=== PATIENT | female | born 1960 | race Hispanic/Latino ===

== ENCOUNTER 2018-11-01 11:40 | Emergency (ER) | payer MEDICAID, OTHER ==
[2018-11-01 13:54] LABS: BASO # 0.1 K/uL (0.0-0.2); BASO % 0.8 % (0.0-2.0); EOS # 0.1 K/uL (0.0-0.7); HEMOGLOBIN 11.8 g/dL (12.0-16.0); LYMPH # 1.5 K/uL (1.0-4.3); LYMPH % 17.8 % (20.0-40.0); MEAN CELL VOLUME 71.8 fl (81.0-99.0); MEAN CORPUSCULAR HEMOGLOBIN 22.9 pg (27.0-31.0); MEAN CORPUSCULAR HGB CONC 31.9 g/dL (33.0-37.0); MEAN PLATELET VOLUME 9.2 fl (7.2-11.7); MONO # 0.4 K/uL (0.0-0.8); MONO % 5.2 % (0.0-10.0); NEUT # 6.1 K/uL (1.8-7.0); NEUT % 75.2 % (50.0-75.0); RBC 5.16 Mil/uL (3.80-5.20); RED CELL DISTRIBUTION WIDTH 18.1 % (11.5-14.5); WHITE BLOOD COUNT 8.2 K/uL (4.8-10.8)
[2018-11-01 13:59] LABS: ALB/GLOB RATIO 0.9 (1.0-2.1); ALBUMIN 3.7 g/dL (3.5-5.0); ALT/SGPT 14 U/L (9-52); AST/SGOT 24 U/L (14-36); BLOOD UREA NITROGEN 9 mg/dl (7-17); CALCIUM 9.2 mg/dL (8.4-10.2); GFR NON-AFRICAN AMERICAN > 60
--- NOTE | 2018-11-01 14:10 | ED PDOC ---
HPI: Wound Care - HPI Time Seen by Provider: 11/01/18 12:05 Chief Complaint (Nursing): Wound Check Chief Complaint (Provider): Wound Check History Per: Patient Exam Limitations: no limitations Additional Complaint(s): Brice Mejia is a 58 year old female with a past medical history of diab etes, hypothyroidism, hernia and multiple abdominal surgeries, who presents to the emergency department with heavy drainage from fistula and expulsion of possible mesh. She states she developed a fistula from her bowels to skin in June of this year. Patient states she has seen her PMD for this and is treating it at home with creams and dressing changes with some improvement at the time. She further reports that there was a tiny portion of mesh that was visible at the opening. Since today, the patient noticed heavy drainage from the area that has stool mixed with possible pus. Patient noticed to have mesh in the dressing when she removed it. She states the drainage of stool form the fistula site is frequent. Patient has been informed in the past that she is not a surgical candidate anymore. She denies fever, chills, sweats, dysuria, abdominal pain. Her last bowel movement was yesterday. PMD: Everton Koroma Past Medical History Reviewed: Historical Data, Nursing Documentation, Vital Signs Vital Signs: Last Vital Signs Temp 97.8 F 11/01/18 11:46 Pulse 117 H 11/01/18 11:46 Resp 15 11/01/18 11:46 BP 113/63 11/01/18 11:46 Pulse Ox 100 11/01/18 11:46 - Medical History PMH: Anemia, Diabetes, HTN, Hypothyroidism Denies: Chronic Kidney Disease - Surgical History Other surgeries: multiple abdominal surgeries - Family History Family History: States: Unknown Family Hx - Immunization History Hx Tetanus Toxoid Vaccination: Yes Hx Influenza Vaccination: Yes Hx Pneumococcal Vaccination: No - Home Medications Home Medications: Ambulatory Orders Medication Instructions Recorded Enalapril Maleate 5 mg PO HS 09/07/14 Levothyroxine Sodium [Synthroid] 200 mcg PO DAILY 09/07/14 MetFORMIN [glucoPHAGE] 1,000 mg PO BID 09/07/14 Naproxen [Naprosyn] 1 tab PO BID PRN #20 tab 10/14/15 traMADol [Ultram] 50 mg PO Q8 #20 tab 10/14/15 Famotidine [Pepcid] 1 tab PO BID #10 tab 10/15/16 Ondansetron [Zofran Odt] 1 odt PO BID PRN #4 odt 10/15/16 - Allergies Allergies/Adverse Reactions: Allergies Allergy/AdvReac Type Severity Reaction Status Date / Time No Known Allergies Allergy Verified 10/15/16 16:36 Review of Systems ROS Statement: Except As Marked, All Systems Reviewed And Found Negative Constitutional: Negative for: Fever, Chills, Sweats Gastrointestinal: Positive for: Other (abdominal drainage from fistula ). Negative for: Abdominal Pain, Diarrhea Physical Exam - Reviewed Nursing Documentation Reviewed: Yes Vital Signs Reviewed: Yes - Physical Exam Appears: Positive for: Non-toxic Head Exam: Positive for: ATRAUMATIC Skin: Positive for: Normal Color Cardiovascular/Chest: Positive for: Regular Rate, Rhythm. Negative for: Murmur Respiratory: Positive for: Normal Breath Sounds. Negative for: Respiratory Distress Gastrointestinal/Abdominal: Positive for: Mass (on palpation there is a firm 4.5-5 cm mass on the right lateral to the opening of the fistula; (-) fluctuance ), Other (large pannus). Negative for: Normal Exam (appox. 3.5 cm opening in the right lower quadrant with fecal content and purulent drainage; erythema around the opening), Tenderness, Distended, Guarding Neurologic/Psych: Positive for: Alert, Oriented - Laboratory Results Result Diagrams: 11/01/18 13:25 11/01/18 13:25 - ECG O2 Sat by Pulse Oximetry: 100 (RA) Pulse Ox Interpretation: Normal Medical Decision Making Medical Decision Making: Time: 12:48 Plan: --CMP --CBC with differential --PTT --PT --Urinalysis --Surgical consultation 1840 Abd/pelvis CT FINDINGS: LOWER THORAX: The visualized lungs are clear. LIVER: Normal in size. There are scattered punctate calcifications consistent with prior granular GALLBLADDER AND BILE DUCTS: The gallbladder is distended without wall thickening or pericholecystic fluid. There are multiple gallstones and a large peripherally calcified stone in the region of the neck. PANCREAS: Diffuse fatty trophy of the pancreas. No gross lesion or ductal dilatation. SPLEEN: Normal in size. There are multiple punctate calcifications consistent with prior granulomatous disease. ADRENALS: No discrete nodule. KIDNEYS AND URETERS: Normal in size. No hydronephrosis. There is a 12 mm nonobstructing stone in the upper pole of the left kidney. There is a subcentimeter high attenuation lesion in the lower pole likely a hemorrhagic cyst slightly increased in size since the prior examination. VASCULATURE: No aortic aneurysm. Atherosclerotic aortoiliac calcifications are present. BOWEL: There is redemonstration of a large ventral abdominal hernia containing the gastric antrum, pylorus, duodenum, majority of the small bowel loops and colon. The small bowel loops are normal in caliber. There is a linear tract containing oral contrast leading from the small bowel loops in the right lower quadrant to the skin surface. There is abnormal circumferential soft tissue surrounding this tract in the right ventral abdominal wall. There is a big defect in the skin surface and irregularity which likely represents the enterocutaneous fistula. There are multiple surgical clips in the right lower abdomen related to prior bowel surgery. There is irregular ulcerated appearance of the skin inferior lateral to the ileostomy. There is no evidence of bowel dilatation or obstruction. APPENDIX: Normal appendix. PERITONEUM: No free fluid. No free air. LYMPH NODES: No enlarged lymph nodes. BLADDER: Well distended and normal in appearance. REPRODUCTIVE: The uterus is mildly enlarged and lobular which may be related to fibroid uterus or adenomyosis. BONES: No acute fracture. Within normal limits for the patient's age. OTHER FINDINGS: None. IMPRESSION: Findings are most compatible with enterocutaneous fistula with abnormal soft tissue surrounding the fistula tract in the right lateral lower abdominal wall. No evidence for bowel obstruction. Additional comments as described above. Large ventral abdominal wall hernia containing majority of the small and large bowel. Pt seen by surgical consult who manually removed most of mesh that was expelled from fistula. Pt to f/u with Dr. Valentine in office in 2 weeks. Scribe Attestation: Documented by Jesse Hudson, acting as a scribe for Meme Teresa-Agarwal PA-C. Provider Scribe Attestation: All medical record entries made by the Scribe were at my direction and personally dictated by me. I have reviewed the chart and agree that the record accurately reflects my personal performance of the history, physical exam, medical decision making, and the department course for this patient. I have also personally directed, reviewed, and agree with the discharge instructions and dis position. Disposition - Clinical Impression Clinical Impression: Enterocutaneous fistula - Patient ED Disposition Is Patient to be Admitted: No Counseled Patient/Family Regarding: Studies Performed, Diagnosis, Need For Followup - Disposition Referrals: Lyn Valentine MD [Staff Provider] - Disposition: Routine/Home Disposition Time: 21:25 Condition: STABLE Additional Instructions: F/u in two weeks with Dr. Lyn Valentine for f/u. Use Xeroform as directed by the surgeon. F/u with Dr. Everton Koroma for routine evaluation as needed. Return to ER if you develop fevers, chills or night sweats. Instructions: Enterocutaneous Fistula (DC) Forms: [employer] (Senegalese) Print Language: BOLIVIAN
[2018-11-01 14:18] LABS: INR 1.1
[2018-11-01 14:21] LABS: PARTIAL THROMBOPLASTIN TIME 31.2 Seconds (25.6-37.1)
[2018-11-01] MEDS ORDERED: Iohexol 240 (50 ml) PO ONE (15:28)
[2018-11-01] MEDS ORDERED: Iohexol 240 (50 ml) ONE (15:33)
--- NOTE | 2018-11-01 15:51 | CP.PCM.CON ---
History of Present Illness - History of Present Illness History of Present Illness: SURGERY CONSULT NOTE FOR DR. MONSON Reason for consult: Exposed abdominal hernia mesh exposure with EC fistula 58F presents to ED for exposed abdominal hernia mesh. She admits to a long history of multiple abdominal hernia repairs the last one being in 2010. She states she first noticed drainage from abdominal wall 4 years ago and that is went she was diagnosed with EC fistula. Patient states she notices mesh exposure 4 months ago in june. She has been following multiple physicians for this EC fistula. Patient came today because the amount of mesh exposed suddenly increased in short amount of time according to patient. She denies any abdominal pain, denies nausea, vomiting, fevers or chills. She has been having normal bow el function. PMH: DM, SBO, multiple hernia PSH: Multiple abdominal operations, SBR 2010 according to documentation Past Patient History - Infectious Disease Hx of Infectious Diseases: None - Tetanus Immunizations Tetanus Immunization: Unknown - Past Medical History & Family History Past Medical History?: Yes - Past Social History Smoking Status: Former Smoker - CARDIAC Hx Hypertension: Yes - PULMONARY Hx Respiratory Disorders: No - NEUROLOGICAL Hx Neurological Disorder: No - HEENT Hx HEENT Problems: No - RENAL Hx Chronic Kidney Disease: No - ENDOCRINE/METABOLIC Hx Hypothyroidism: Yes - HEMATOLOGICAL/ONCOLOGICAL Hx Anemia: Yes - INTEGUMENTARY Hx Dermatological Problems: Yes Other/Comment: ABDOMINAL FISTULA W/ MULTIPLE SURGERIES - MUSCULOSKELETAL/RHEUMATOLOGICAL Hx Musculoskeletal Disorders: No Hx Falls: No - GASTROINTESTINAL Hx Gastrointestinal Disorders: Yes Hx Bowel Surgery: No - GENITOURINARY/GYNECOLOGICAL Hx Genitourinary Disorders: No - PSYCHIATRIC Hx Psychophysiologic Disorder: No Hx Substance Use: No - SURGICAL HISTORY Hx Surgeries: Yes Hx Herniorrhaphy: Yes (3 yrs ago) Other/Comment: colon resection, ABDOMINAL FISTULA REPAIR - ANESTHESIA Hx Anesthesia: Yes Hx Anesthesia Reactions: No Meds Allergies/Adverse Reactions: Allergies Allergy/AdvReac Type Severity Reaction Status Date / Time No Known Allergies Allergy Verified 10/15/16 16:36 Physical Exam - Constitutional Appears: Non-toxic, No Acute Distress - Eye Exam Eye Exam: EOMI, PERRL - ENT Exam ENT Exam: Mucous Membranes Moist - Respiratory Exam Respiratory Exam: Clear to Auscultation Bilateral, NORMAL BREATHING PATTERN - Cardiovascular Exam Cardiovascular Exam: REGULAR RHYTHM, +S1, +S2 - GI/Abdominal Exam GI & Abdominal Exam: Soft. absent: Distended, Firm, Guarding, Rebound, Rigid, Tenderness Additional comments: EC fistula located at site where umbilicus would be. Opening approximately 2-3cm in diameter with succus and particulated bowel content drainage. inferior to opening is 5-6cm of granulation tissue. 90%of mesh is exposed, saturated with stool and hardened, no purulent material. - Neurological Exam Neurological exam: Alert, Oriented x3 - Psychiatric Exam Psychiatric exam: Anxious, Normal Affect, Normal Mood - Skin Skin Exam: Dry, Intact, Normal Color, Warm Results - Vital Signs Recent Vital Signs: Last Vital Signs Temp 97.8 F 11/01/18 11:46 Pulse 117 H 11/01/18 11:46 Resp 15 11/01/18 11:46 BP 113/63 11/01/18 11:46 Pulse Ox 100 11/01/18 14:21 - Labs Result Diagrams: 11/01/18 13:25 11/01/18 13:25 Labs: Laboratory Results - last 24 hr 11/01/18 11/01/18 11/01/18 13:25 13:25 13:25 WBC 8.2 RBC 5.16 Hgb 11.8 L Hct 37.1 MCV 71.8 L MCH 22.9 L MCHC 31.9 L RDW 18.1 H Plt Count 331 MPV 9.2 Neut % (Auto) 75.2 H Lymph % (Auto) 17.8 L [place] % (Auto) 5.2 Eos % (Auto) 1.0 Baso % (Auto) 0.8 Neut # (Auto) 6.1 Lymph # (Auto) 1.5 [place] # (Auto) 0.4 Eos # (Auto) 0.1 Baso # (Auto) 0.1 PT INR APTT Sodium 140 Potassium 4.0 Chloride 106 Carbon Dioxide 23 Anion Gap 15 BUN 9 Creatinine 0.6 L Est GFR ( Amer) > 60 Est GFR (Non-Af Amer) > 60 Random Glucose 152 H Calcium 9.2 Total Bilirubin 0.4 AST 24 ALT 14 Alkaline Phosphatase 80 Total Protein 7.8 Albumin 3.7 Globulin 4.1 H Albumin/Globulin Ratio 0.9 L Blood Type Cancelled Antibody Screen Cancelled BBK History Checked Cancelled 11/01/18 11/01/18 14:05 14:11 WBC RBC Hgb Hct MCV MCH MCHC RDW Plt Count MPV Neut % (Auto) Lymph % (Auto) [place] % (Auto) Eos % (Auto) Baso % (Auto) Neut # (Auto) Lymph # (Auto) [place] # (Auto) Eos # (Auto) Baso # (Auto) PT 13.0 INR 1.1 APTT 31.2 Sodium Potassium Chloride Carbon Dioxide Anion Gap BUN Creatinine Est GFR ( Amer) Est GFR (Non-Af Amer) Random Glucose Calcium Total Bilirubin AST ALT Alkaline Phosphatase Total Protein Albumin Globulin Albumin/Globulin Ratio Blood Type A POSITIVE Antibody Screen Negative BBK History Checked Patient has bt Assessment & Plan - Assessment and Plan (Free Text) Assessment: 58F with EC fistula and exposed abdominal hernia mesh Plan: - regular diet - Protruding piece of mesh sloughed off leaving smaller amount of mesh behind. bedside - ECF cleaned off particulated succus - Dressed with 4*4 gauze into fistula to absorb content and xeroform on granulation tissue - Patient needs CT Abdomen and pelvis with PO contrast to evaluate the fistula Discussed with Dr. Serge Viera, PGY3
--- NOTE | 2018-11-01 18:45 | CT ---
Date of service: 11/01/2018 PROCEDURE: CT Abdomen and Pelvis with contrast HISTORY: enterocutaneous fistula COMPARISON: 09/07/2014. TECHNIQUE: CT scan of the abdomen and pelvis was performed without administration of intravenous contrast. Oral contrast was administered. Coronal and sagittal reformatted images were obtained. Radiation dose: Total exam DLP = 1134.31 mGy-cm. This CT exam was performed using one or more of the following dose reduction techniques: Automated exposure control, adjustment of the mA and/or kV according to patient size, and/or use of iterative reconstruction technique. FINDINGS: LOWER THORAX: The visualized lungs are clear. LIVER: Normal in size. There are scattered punctate calcifications consistent with prior granular GALLBLADDER AND BILE DUCTS: The gallbladder is distended without wall thickening or pericholecystic fluid. There are multiple gallstones and a large peripherally calcified stone in the region of the neck. PANCREAS: Diffuse fatty trophy of the pancreas. No gross lesion or ductal dilatation. SPLEEN: Normal in size. There are multiple punctate calcifications consistent with prior granulomatous disease. ADRENALS: No discrete nodule. KIDNEYS AND URETERS: Normal in size. No hydronephrosis. There is a 12 mm nonobstructing stone in the upper pole of the left kidney. There is a subcentimeter high attenuation lesion in the lower pole likely a hemorrhagic cyst slightly increased in size since the prior examination. VASCULATURE: No aortic aneurysm. Atherosclerotic aortoiliac calcifications are present. BOWEL: There is redemonstration of a large ventral abdominal hernia containing the gastric antrum, pylorus, duodenum, majority of the small bowel loops and colon. The small bowel loops are normal in caliber. There is a linear tract containing oral contrast leading from the small bowel loops in the right lower quadrant to the skin surface. There is abnormal circumferential soft tissue surrounding this tract in the right ventral abdominal wall. There is a big defect in the skin surface and irregularity which likely represents the enterocutaneous fistula. There are multiple surgical clips in the right lower abdomen related to prior bowel surgery. There is irregular ulcerated appearance of the skin inferior lateral to the ileostomy. There is no evidence of bowel dilatation or obstruction. APPENDIX: Normal appendix. PERITONEUM: No free fluid. No free air. LYMPH NODES: No enlarged lymph nodes. BLADDER: Well distended and normal in appearance. REPRODUCTIVE: The uterus is mildly enlarged and lobular which may be related to fibroid uterus or adenomyosis. BONES: No acute fracture. Within normal limits for the patient's age. OTHER FINDINGS: None. IMPRESSION: Findings are most compatible with enterocutaneous fistula with abnormal soft tissue surrounding the fistula tract in the right lateral lower abdominal wall. No evidence for bowel obstruction. Additional comments as described above. Large ventral abdominal wall hernia containing majority of the small and large bowel.
[2018-11-01 21:25] VITALS: BP 100/60; PULSE 88; RESP 16; TEMP 99.2
[2018-11-02 00:36] VITALS: O2SAT 100
== END 2018-11-01 21:25 | disposition home or self-care (01) ==
LOC: H.ER 11:40
DX: K63.2 Fistula of intestine (principal); T83.728A Exposure of other implanted mesh into organ or tissue, initial encounter; D64.9 Anemia, unspecified; E03.9 Hypothyroidism, unspecified; E11.9 Type 2 diabetes mellitus without complications; I10 Essential (primary) hypertension; K43.9 Ventral hernia without obstruction or gangrene; Z79.84 Long term (current) use of oral hypoglycemic drugs
CPT/HCPCS: 74176; 80053; 81025; 85025; 85610; 85730; 86850; 86900; 99283; Q9966